=== PATIENT | female | born 1960 | race Caucasian/White ===

== ENCOUNTER 2018-11-26 17:10 | Inpatient (IN) | payer SELFPAY ==
[2018-11-26 18:30] LABS: #Basophils 0.1 thou/uL (0.0-0.2); #Eosinphils 0.2 thou/uL (0.0-0.7); #Lymphocytes 3.6 thou/uL (1.20-3.40); #Monocytes 0.8 thou/uL (0.11-0.59); #Neutrophils 5.2 thou/uL (1.40-6.50); %Basophils 1.1 % (0.0-1.0); %Eosinophils 2.3 % (0.0-10.0); %Lymphocytes 36.2 % (21.0-51.0); %Monocytes 7.7 % (0.0-10.0); %Neutrophils 52.8 % (42.0-75.0); Hemoglobin 13.4 g/dL (12.0-16.0); Mean Corpuscular HGB CONC 33.3 g/dL (32.0-36.0); Mean Corpuscular Hemoglobin 28.2 pg (27.0-31.0); Mean Corpuscular Volume 84.6 fL (78.0-98.0); Mean Platelet Volume 8.8 fL (7.4-10.4); Platelet Count 272 thou/uL (130-400); RBC Distribution Width 13.5 % (11.5-14.5); Red Blood Cell (RBC) Count 4.77 mill/uL (4.20-5.40); White Blood Cell (WBC) Count 9.8 thou/uL (4.8-10.8)
[2018-11-26 18:46] LABS: ALT (SGPT) 17 U/L (8-55); AST (SGOT) 20 U/L (5-34); Albumin 4.7 g/dL (3.5-5.0); Alkaline Phosphatase 108 U/L (40-150); Anion Gap 18 mmol/L (10-20); BUN (Urea Nitrogen) 18 mg/dL (9.8-20.1); Bilirubin, Total 0.3 mg/dL (0.2-1.2); CK (CPK) 275 U/L (29-168); Calc. Creatinine Clearance 0 mL/min (70-130); Calcium 10.3 mg/dL (7.8-10.44); Carbon Dioxide 23 mmol/L (22-29); Chloride 103 mmol/L (98-107); Estimated GFR-MDRD 69; Globulin 3.1 g/dL (2.4-3.5); Glucose 101 mg/dL (70-105); Lipase 40 U/L (8-78); Potassium 3.6 mmol/L (3.5-5.1); Protein, Total 7.8 g/dL (6.0-8.3); Sodium 140 mmol/L (136-145)
[2018-11-26 19:14] LABS: CKMB 9.7 ng/mL (0-6.6)
[2018-11-26] MEDS ORDERED: Morphine 4 MG/ML VIAL ONE (23:07)
[2018-11-26] MEDS ORDERED: Ondansetron PF 4 MG/2 ML Vial ONE ×2 (23:08)
[2018-11-26] MEDS ORDERED: Aspirin 325 MG TAB ONE (23:08)
[2018-11-27 00:16] VITALS: BMI 31.2
[2018-11-27 02:29] LABS: Troponin I 0.024 ng/mL (< 0.028)
[2018-11-27] MEDS ORDERED: Acetaminophen 325 MG TAB PO PRN (03:30)
[2018-11-27] MEDS ORDERED: Acetaminophen 650 MG Suppository PR PRN (03:30)
[2018-11-27] MEDS ORDERED: Ondansetron ODT 4 MG TAB PO PRN (03:30)
[2018-11-27] MEDS ORDERED: Ondansetron PF 4 MG/2 ML Vial IVP PRN (03:30)
[2018-11-27 04:56] LABS: Anion Gap 14 mmol/L (10-20); BUN (Urea Nitrogen) 18 mg/dL (9.8-20.1); Calc. Creatinine Clearance 106 mL/min (70-130); Calcium 9.5 mg/dL (7.8-10.44); Carbon Dioxide 24 mmol/L (22-29); Chloride 107 mmol/L (98-107); Estimated GFR-MDRD 78; Glucose 110 mg/dL (70-105); Potassium 3.7 mmol/L (3.5-5.1); Sodium 141 mmol/L (136-145)
--- NOTE | 2018-11-27 05:02 | HP ---
PRIMARY CARE DOCTOR: The patient goes to [facility]. CODE STATUS: Full code. TIME OF EVALUATION: CHIEF COMPLAINT: Dizziness and positive troponin. HISTORY OF PRESENT ILLNESS: This is a 58-year-old female patient, with past medical history of coronary artery disease with previous [place], hypertension, came to the hospital after having an episode of dizziness with no clear triggers, no alleviating factors. She also has a history of having been signed AMA from [facility] yesterday. Reportedly, the patient has a troponin of 0.6. I do not have records from that, this report was from ER. We have been unable to get the records from [facility]. The patient reportedly have a stress test done a year ago since she had a surgery of the back and neck and she received a workup to rule out any coronary artery disease prior to surgery. We will request those records. The patient is not a good historian. Once we get that information, then we will be able to make a plan for further decisions. For now, we will continue to monitor on tele and monitor troponins. REVIEW OF SYSTEMS: CONSTITUTIONAL: No fever, chills, or generalized weakness. RESPIRATORY: No cough, sputum production, or shortness of breath. CARDIOVASCULAR: The patient has no chest pain. The patient has some palpitation. GASTROINTESTINAL: No nausea. No vomiting, diarrhea, or abdominal pain. DIRECTOR CLIENT: No dizziness, headache, or feeling lightheaded. GENITOURINARY: No burning on urination. EXTREMITIES: No leg swelling. All other systems were reviewed and negative except for the findings mentioned above. PAST MEDICAL HISTORY: Positive for acute [place] and hypertension. PAST SURGICAL HISTORY: Bilateral knee replacement, C3, C7, neck surgery, back surgery PSYCHIATRIC HISTORY: No previous psych history. FAMILY HISTORY: Reviewed and non contributory to current presentation. SOCIAL HISTORY: The patient denies alcohol use. No drug use. No smoking history. KNOWN ALLERGIES: Tramadol. REPORTED MEDICATIONS: 1. Lisinopril. 2. Hydrochlorothiazide. 3. Metoprolol. 4. Citalopram. 5. Meloxicam. PHYSICAL EXAMINATION: VITAL SIGNS: On presentation, blood pressure 115/59 with heart rate 77, respiratory rate was 18, temperature 98.2. Pain was 0/10. Oxygen saturation was 100 on room air. GENERAL APPEARANCE: The patient is alert, oriented, not in acute distress. HEENT: Eyes, normal conjunctivae. Moist oral mucosa. Anicteric. No JVD. RESPIRATORY: Bilateral air entry. No rales. No wheezes. Symmetric expansion. CARDIOVASCULAR: Normal rate. Regular rhythm. No murmurs. No gallop. No edema. ABDOMEN: Soft. Normal bowel sounds. MUSCULOSKELETAL: Baseline range of motion and strength. No tenderness. SKIN: Warm, intact. No pallor. No rash. No redness. Capillary refill seems to be intact. NEUROLOGICAL: No evidence of any new focal weakness. Cranial nerves seems to be intact. PSYCHIATRIC: The patient is in good mood. No anxiety. Optimal judgment. IMAGING STUDIES: EKG was reviewed. The patient has sinus rhythm at the rate of 84 with some PVCs, left ventricular hypertrophy with repolarization abnormalities. Hematology; white count 9.8, hemoglobin 13.4, MCV 84.6, platelet count 272. Chemistry; sodium 140, potassium 3.6, chloride 103, carbon dioxide 23, anion gap 18, BUN 18, creatinine 0.8, GFR 69, glucose 101, calcium 10.3, AST 20, ALT 17. CK 275. Troponin 0.043. The other two troponins were negative. Lipase 40. ASSESSMENT AND PLAN: The patient will be placed in the hospital for following medical problems; 1. chest pain r/o acs Mildly elevated troponin, 2nd troponin was negative. There is a report from [facility] that she had one troponin at 0.6, but we do not have a proof of it. The patient has a history of coronary artery disease, also had a history of having a stress test done in [place], [place], in [facility], so we will request those records to make a plan for her, so we do not have to repeat any unnecessary testing. 2. History of hypertension, this is chronic. Reconcile home medications, we will adjust treatment as needed. 3. Deep venous thrombosis prophylaxis. Job ID: [id number] [facility]
[2018-11-27 05:18] LABS: Eosinophils 2 % (0-10); Hemoglobin 12.3 g/dL (12.0-16.0); Lymphocytes 40 % (21-51); MDiff Complete? YES; Mean Corpuscular HGB CONC 33.3 g/dL (32.0-36.0); Mean Corpuscular Hemoglobin 28.3 pg (27.0-31.0); Mean Platelet Volume 8.5 fL (7.4-10.4); Monocytes 9 % (0-10); Neutrophil 45 % (42-75); Platelet Count 201 thou/uL (130-400); RBC Distribution Width 13.4 % (11.5-14.5); Reactive Lymphocytes 3 % (0-10); Red Blood Cell (RBC) Count 4.34 mill/uL (4.20-5.40); White Blood Cell (WBC) Count 9.3 thou/uL (4.8-10.8)
[2018-11-27] MEDS: Enoxaparin Sodium 40 MG/0.4 ML SYRINGE SC SCH (10:03)
[2018-11-27] MEDS: Citalopram 10 MG TAB PO SCH (10:03)
[2018-11-27] MEDS: Lisinopril/Hydrochlorothiazide 20 mg/12.5 mg Tablet PO SCH (10:03)
[2018-11-27] MEDS ORDERED: ADENOSINE 60 MG/20 ML VIAL ONE (13:10)
--- NOTE | 2018-11-27 14:08 | NM ---
NM Cardiac Stress W EF WF HISTORY: Chest pain COMPARISON: None. FINDINGS: This examination was performed using 31.0 mCi 90 9M6 technetium sestamibi for the stress an d 10.3 mCi for the resting images. This shows a defect in the inferior lateral wall of the left ventricle near the apex it shows some mi nimal improvement near the apex on the stress images which may represent a tiny focus of mukesh-infarct ischemia Wall motion: There is symmetric contractility of the ventricle Left ventricular ejection fraction: The calcaneal left ventricular ejection fraction is 74% IMPRESSION: Area of scar involving the inferior lateral wall of the left ventricle near the apex. On the resting images there does appear to be some minimal improvement with some reperfusion near the apex of the heart.
--- NOTE | 2018-11-27 15:41 | PDOC.PN ---
- Subjective Encounter Start Date: 11/27/18 Subjective: Patient examined, denies new complaints -: We are still waiting for records from [facility] -: Patient reports last stress was 07/2017 - Objective Resuscitation Status - Order Detail: 11/27/18 03:30 Resuscitation Status Routine Resuscitation Status: FULL: Full Resuscitation Vital Signs & Weight: Vital Signs (12 hours) Temp Pulse Resp BP BP Pulse Ox 11/27/18 13:56 97.6 F 58 L 16 118/60 96 11/27/18 10:03 72 11/27/18 07:38 97.6 F 72 14 106/59 L 94 L Weight Weight 85.275 kg I&O: 11/26/18 11/27/18 11/28/18 06:59 06:59 06:59 Intake Total 200 Balance 200 Result Diagrams: 11/27/18 04:24 11/27/18 04:24 Phys Exam - Physical Examination HEENT: PERRLA, moist MMs Neck: no nodes Respiratory: clear to auscultation bilateral Cardiovascular: RRR, no significant murmur Gastrointestinal: soft, non-tender Musculoskeletal: no edema, pulses present Neurological: non-focal, normal sensation Lymphatic: no nodes Psychiatric: normal affect, A&O x 3 Skin: no rash, normal turgor Dx/Plan (1) Chest pain Code(s): R07.9 - CHEST PAIN, UNSPECIFIED Status: Acute (2) CAD (coronary artery disease) Code(s): I25.10 - ATHSCL HEART DISEASE OF [place] CORONARY ARTERY W/O ANG PCTRS Status: Chronic (3) Hypertension Code(s): I10 - ESSENTIAL (PRIMARY) HYPERTENSION Status: Chronic (4) Chronic back pain Code(s): M54.9 - DORSALGIA, UNSPECIFIED; G89.29 - OTHER CHRONIC PAIN Status: Chronic (5) H/O Spinal surgery Code(s): Z98.890 - OTHER SPECIFIED POSTPROCEDURAL STATES Status: Chronic - Plan cont current plan of care Cardiology consulted due to abnormal stress test, would appreciate -: recommendations for treatment options, as needed. -: Awaiting records from [facility] -: Will continue to monitor, repeat labs in AM * .
[2018-11-27] MEDS ORDERED: Communication Order-Pharmacy FS SCH (20:00)
--- NOTE | 2018-11-28 01:19 | CON ---
DATE OF CONSULTATION: HISTORY: Lilliam Nuñez is a 58-year-old white female, admitted with dizziness mainly as well as some chest discomfort. 2-1/2 years ago while living in [place], she apparently had a myocardial infarction. She underwent cardiac catheterization and was told that 1 of her "veins burst" and could not be treated with stenting. She then recently, over the last year, has undergone surgeries in [place], [place] with cervical laminectomy as well as lumbar laminectomy. She stopped taking aspirin before those surgeries and has never resumed. Her last surgery was in July. On November 25, when she awoke, she was having vertiginous symptoms with feeling of the room spinning and she could not stand up. She was nauseated, vomited and did have some chest discomfort with that. She went to the [facility] Emergency Room and they recommended that she be admitted, however, she signed out AMA. She continued to have dizziness and so came to the emergency room here. Her troponin was mildly elevated and she was admitted for further evaluation. She has undergone adenosine Cardiolite testing, which was abnormal. PAST MEDICAL HISTORY: Hypertension. Hypercholesterolemia. She was prescribed a statin, but she decided to never take it. She has never been intolerant of statins because she has never taken one. PAST SURGICAL HISTORY: Bilateral knee replacement, neck surgery, back surgery, hysterectomy, foot surgery, and cataract surgery. MEDICATIONS: Celexa 10 mg daily, lisinopril/hydrochlorothiazide 20/12.5 daily, and metoprolol 25 XL daily. ALLERGIES: TRAMADOL. SOCIAL HISTORY: She does not smoke or drink. FAMILY HISTORY: Father had myocardial infarction. REVIEW OF SYSTEMS: A 12-point review of systems unremarkable except for leg and arm paresthesias since her back and neck surgery. PHYSICAL EXAMINATION: VITAL SIGNS: Blood pressure 121/58 and pulse 58. HEENT: PERRL. NECK: Supple. CHEST: Clear. CARDIAC: S1 and S2 normal without any S3, S4, or murmurs. Carotid upstrokes normal without bruits. ABDOMEN: Normal bowel sounds without tenderness, organomegaly or masses. Abdomen is obese. EXTREMITIES: Revealed no clubbing, cyanosis, or edema. NEUROLOGICAL: Grossly intact. LABORATORY DATA: EKG revealed normal sinus rhythm with PVC and probable previous inferior infarction. Adenosine Cardiolite revealed a scar of the inferolateral wall near the apex. There is some minimal reperfusion near the apex of the heart. CBC is unremarkable. CK-MB 9.7, troponin I 0.043, Sodium 140, potassium 3.6, chloride 103, carbon dioxide 23, BUN 18, and creatinine 0.84. IMPRESSION: 1. Previous myocardial infarction without intervention. 2. Abnormal Cardiolite with finding of inferolateral fixed defect with some evidence of ischemia. She does have evidence of inferior infarction on her EKG and certainly these findings may be from her previous infarction. However, at the present time, there is no way of knowing that. 3. History compatible with acute labyrinthitis. 4. Hypertension. At times, her blood pressure is somewhat low and she does state she has lost 25-30 pounds with all of her surgeries, this will continue to be monitored and some of her medications may need to be reduced. 5. Hypercholesterolemia, she has never tried a statin. 6. Positive family history. 7. Obesity. 8. Multiple spine surgeries within the last year. PLAN: The patient will be started on aspirin. Fasting lipid profile will be obtained and will be started on a statin. I did recommend that she undergo cardiac catheterization. Risks of this were discussed with the patient and her daughter including , myocardial infarction, dye reaction, vascular injury, CVA, transfusion, limb loss, renal loss, etc. Also risk of stent placement discussed including , myocardial infarction, emergent CABG, restenosis, stent thrombosis, vessel perforation, etc. She does state that she has bad hips and may need to have those replaced, but states she does not have any plans to do that within the next several years. She never had gastrointestinal bleeding or stroke and she wishes a drug-eluting stent to be placed if needed. Job ID: [id number] [facility]ITAL[facility]le
[2018-11-28 05:19] LABS: Cardiac Risk 6.2 (Less than 4.5)
[2018-11-28] MEDS: Aspirin 325 mg Enteric Coated Tablet PO SCH (09:29)
[2018-11-28] MEDS: Citalopram 10 MG TAB PO SCH (09:29)
[2018-11-28] MEDS: Enoxaparin Sodium 40 MG/0.4 ML SYRINGE SC SCH (09:30)
[2018-11-28] MEDS: Lisinopril/Hydrochlorothiazide 20 mg/12.5 mg Tablet PO SCH (09:30)
[2018-11-28] MEDS ORDERED: HYDROcodone/Acetaminophen 5/325 mg Tablet PO PRN (10:26)
--- NOTE | 2018-11-28 11:05 | EKG ---
Test Reason : Blood Pressure : / mmHG Vent. Rate : 084 BPM Atrial Rate : 084 BPM P-R Int : 136 ms QRS Dur : 084 ms QT Int : 338 ms P-R-T Axes : -01 -05 179 degrees QTc Int : 399 ms Sinus rhythm with occasional Premature ventricular complexes Left ventricular hypertrophy with repolarization abnormality Inferior infarct , age undetermined Abnormal ECG Confirmed by SILVER OHARA ([id number]), editorial specialist ACOSTA ARRINGTON ([id number]) on 11/28/2018 11:05:34 AM Referred By: Confirmed By:SILVER OHARA
--- NOTE | 2018-11-28 11:05 | EKG ---
Test Reason : Blood Pressure : / mmHG Vent. Rate : 094 BPM Atrial Rate : 094 BPM P-R Int : 142 ms QRS Dur : 084 ms QT Int : 320 ms P-R-T Axes : -04 -05 167 degrees QTc Int : 400 ms Sinus rhythm with occasional Premature ventricular complexes Left ventricular hypertrophy with repolarization abnormality Possible Lateral infarct , age undetermined Inferior infarct , age undetermined Abnormal ECG Confirmed by SILVER OHARA ([id number]), marketing editor ACOSTA ARRINGTON ([id number]) on 11/28/2018 11:05:49 AM Referred By: Confirmed By:SILVER OHARA
[2018-11-28] MEDS: HYDROcodone/Acetaminophen 5/325 mg Tablet PO PRN ×2 (11:21→20:57)
--- NOTE | 2018-11-28 15:23 | PDOC.PN ---
- Subjective Encounter Start Date: 11/28/18 Encounter Start Time: 11:00 -: old records requested/rev Subjective: Patient examined today, reports chronic pain is worse -: without her NSAIDs but Lortab helped with pain -: Answered all questions, Dr. Butler will take for cath on Friday - Objective Resuscitation Status - Order Detail: 11/27/18 03:30 Resuscitation Status Routine Resuscitation Status: FULL: Full Resuscitation Vital Signs & Weight: Vital Signs (12 hours) Temp Pulse Resp BP BP Pulse Ox 11/28/18 11:28 98.1 F 66 12 109/60 95 11/28/18 09:30 58 L 11/28/18 07:40 98.3 F 58 L 12 118/56 L 94 L 11/28/18 03:29 98.7 F 56 L 18 106/59 L 96 Weight Weight 85.275 kg I&O: 11/27/18 11/28/18 11/29/18 06:59 06:59 06:59 Intake Total 200 950 600 Balance 200 950 600 Result Diagrams: 11/27/18 04:24 11/27/18 04:24 Phys Exam - Physical Examination HEENT: PERRLA Respiratory: clear to auscultation bilateral Cardiovascular: RRR Gastrointestinal: soft, non-tender Musculoskeletal: pulses present chronic lumbar pain Neurological: normal sensation Lymphatic: no nodes Psychiatric: normal affect, A&O x 3 Skin: no rash Dx/Plan (1) Chest pain Code(s): R07.9 - CHEST PAIN, UNSPECIFIED Status: Acute (2) CAD (coronary artery disease) Code(s): I25.10 - ATHSCL HEART DISEASE OF [place] CORONARY ARTERY W/O ANG PCTRS Status: Chronic (3) Hypertension Code(s): I10 - ESSENTIAL (PRIMARY) HYPERTENSION Status: Chronic (4) Chronic back pain Code(s): M54.9 - DORSALGIA, UNSPECIFIED; G89.29 - OTHER CHRONIC PAIN Status: Chronic (5) H/O Spinal surgery Code(s): Z98.890 - OTHER SPECIFIED POSTPROCEDURAL STATES Status: Chronic - Plan cont current plan of care Dr. Butler will cath on Friday, PT/OT evaluation -: Reports chest pain is better -: Pain meds for her back pain, -: Will continue to monitor, check labs in AM * . Review of Systems - Review of Systems Musculoskeletal: Back Pain (Improved after Lortab) - Medications/Allergies Allergies/Adverse Reactions: Allergies Allergy/AdvReac Type Severity Reaction Status Date / Time tramadol Allergy Verified 11/27/18 00:30 Medications: Current Medications Acetaminophen (Tylenol) 650 mg PO Q4H PRN PRN Reason: Headache/Fever/Mild Pain (1-3) Last Admin: 11/27/18 19:11 Dose: 650 mg Acetaminophen (Tylenol) 650 mg [place] Q4H PRN PRN Reason: Headache/Fever/Mild Pain (1-3) Hydrocodone Bitart/Acetaminophen ([place] 5/325) 1 tab PO Q4H PRN PRN Reason: Moderate Pain (4-6) Hydrocodone Bitart/Acetaminophen ([place] 5/325) 2 tab PO Q4H PRN PRN Reason: Severe Pain (7-10) Last Admin: 11/28/18 11:21 Dose: 2 tab Aspirin (Ecotrin) 325 mg PO DAILY [facility] Last Admin: 11/28/18 09:29 Dose: 325 mg Citalopram Hydrobromide (Celexa) 10 mg PO DAILY [facility] Last Admin: 11/28/18 09:29 Dose: 10 mg Coenzyme Q10 (Coenzyme Q10) 200 mg PO HS [facility] Enoxaparin Sodium (Lovenox) 40 mg SC 0900 [facility] Stop: 11/29/18 23:59 Last Admin: 11/28/18 09:30 Dose: 40 mg Sodium Chloride (Normal Saline 0.9%) 1,000 mls @ 100 mls/hr IV .Q10H [facility] Lisinopril (Zestril) 20 mg PO DAILY [facility] Metoprolol Succinate (Toprol Xl) 25 mg PO DAILY [facility] Last Admin: 11/28/18 09:30 Dose: 25 mg Miscellaneous Information (Communication Order-Pharmacy) 0 each FS ONE [facility] Stop: 11/29/18 23:59 Ondansetron HCl (Zofran Odt) 4 mg PO Q6H PRN PRN Reason: Nausea/Vomiting Last Admin: 11/27/18 14:22 Dose: 4 mg Ondansetron HCl (Zofran) 4 mg IVP Q6H PRN PRN Reason: Nausea/Vomiting Rosuvastatin Calcium (Crestor) 20 mg PO HS [facility]
[2018-11-28] MEDS: Senokot S 8.6-50 MG TAB PO SCH (18:21)
[2018-11-28] MEDS: Rosuvastatin 20 MG TAB PO SCH (20:56)
[2018-11-28] MEDS: Ubidecarenone 50 MG CAP PO SCH (20:56)
[2018-11-29] MEDS: Aspirin 325 mg Enteric Coated Tablet PO SCH (09:01)
[2018-11-29] MEDS: Polyethylene Glycol 3350 17 GM Packet PO SCH (09:01)
[2018-11-29] MEDS: Citalopram 10 MG TAB PO SCH (09:01)
[2018-11-29] MEDS: Lisinopril 20 MG TAB PO SCH (09:01)
[2018-11-29] MEDS: Enoxaparin Sodium 40 MG/0.4 ML SYRINGE SC SCH (09:01)
[2018-11-29] MEDS: Senokot S 8.6-50 MG TAB PO SCH ×2 (09:02→21:55)
[2018-11-29] MEDS: HYDROcodone/Acetaminophen 5/325 mg Tablet PO PRN (09:02)
--- NOTE | 2018-11-29 13:38 | PDOC.PN ---
- Subjective Encounter Start Date: 11/29/18 Encounter Start Time: 10:45 Subjective: Patient examined, resting with no new complaints -: Reports exacerbation of chronic back pain from lying on the hospital bed -: PT to work with her today - Objective Resuscitation Status - Order Detail: 11/27/18 03:30 Resuscitation Status Routine Resuscitation Status: FULL: Full Resuscitation Vital Signs & Weight: Vital Signs (12 hours) Temp Pulse Resp BP BP Pulse Ox 11/29/18 11:50 97.4 F L 62 16 115/59 L 115/59 L 95 11/29/18 08:30 98.2 F 61 12 130/69 95 11/29/18 04:57 97.5 F L 53 L 14 131/61 92 L Weight Weight 85.003 kg I&O: 11/28/18 11/29/18 11/30/18 06:59 06:59 06:59 Intake Total 950 1160 240 Output Total 150 Balance 950 1010 240 Result Diagrams: 11/27/18 04:24 11/27/18 04:24 Phys Exam - Physical Examination HEENT: PERRLA, moist MMs Neck: no nodes, no JVD Respiratory: clear to auscultation bilateral Cardiovascular: RRR, no significant murmur Gastrointestinal: soft, non-tender Musculoskeletal: no edema, pulses present Neurological: non-focal, normal sensation Lymphatic: no nodes Psychiatric: normal affect, A&O x 3 Skin: cap refill <2 seconds Dx/Plan (1) Chest pain Code(s): R07.9 - CHEST PAIN, UNSPECIFIED Status: Acute (2) CAD (coronary artery disease) Code(s): I25.10 - ATHSCL HEART DISEASE OF [place] CORONARY ARTERY W/O ANG PCTRS Status: Chronic (3) Hypertension Code(s): I10 - ESSENTIAL (PRIMARY) HYPERTENSION Status: Chronic (4) Chronic back pain Code(s): M54.9 - DORSALGIA, UNSPECIFIED; G89.29 - OTHER CHRONIC PAIN Status: Chronic (5) H/O Spinal surgery Code(s): Z98.890 - OTHER SPECIFIED POSTPROCEDURAL STATES Status: Chronic - Plan Will have cardiac cath in AM -: PT/OT evaluation -: May need PT at home upon DC -: Will continue to monitor labs/VS * . Review of Systems - Review of Systems Musculoskeletal: Back Pain (exacerbation of chronic pain from hospital bed) - Medications/Allergies Allergies/Adverse Reactions: Allergies Allergy/AdvReac Type Severity Reaction Status Date / Time tramadol Allergy Verified 11/27/18 00:30 Medications: Current Medications Acetaminophen (Tylenol) 650 mg PO Q4H PRN PRN Reason: Headache/Fever/Mild Pain (1-3) Last Admin: 11/27/18 19:11 Dose: 650 mg Acetaminophen (Tylenol) 650 mg [place] Q4H PRN PRN Reason: Headache/Fever/Mild Pain (1-3) Hydrocodone Bitart/Acetaminophen ([place] 5/325) 1 tab PO Q4H PRN PRN Reason: Moderate Pain (4-6) Hydrocodone Bitart/Acetaminophen ([place] 5/325) 2 tab PO Q4H PRN PRN Reason: Severe Pain (7-10) Last Admin: 11/29/18 09:02 Dose: 2 tab Aspirin (Ecotrin) 325 mg PO DAILY [facility] Last Admin: 11/29/18 09:01 Dose: 325 mg Citalopram Hydrobromide (Celexa) 10 mg PO DAILY [facility] Last Admin: 11/29/18 09:01 Dose: 10 mg Coenzyme Q10 (Coenzyme Q10) 200 mg PO HS [facility] Last Admin: 11/28/18 20:56 Dose: 200 mg Enoxaparin Sodium (Lovenox) 40 mg SC 0900 [facility] Stop: 11/29/18 23:59 Last Admin: 11/29/18 09:01 Dose: 40 mg Sodium Chloride (Normal Saline 0.9%) 1,000 mls @ 100 mls/hr IV .Q10H [facility] Lisinopril (Zestril) 20 mg PO DAILY [facility] Last Admin: 11/29/18 09:01 Dose: 20 mg Metoprolol Succinate (Toprol Xl) 25 mg PO DAILY [facility] Last Admin: 11/29/18 09:01 Dose: 25 mg Miscellaneous Information (Communication Order-Pharmacy) 0 each FS ONE [facility] Stop: 11/29/18 23:59 Ondansetron HCl (Zofran Odt) 4 mg PO Q6H PRN PRN Reason: Nausea/Vomiting Last Admin: 11/27/18 14:22 Dose: 4 mg Ondansetron HCl (Zofran) 4 mg IVP Q6H PRN PRN Reason: Nausea/Vomiting Polyethylene Glycol (Miralax) 17 gm PO DAILY [facility] Last Admin: 11/29/18 09:01 Dose: 17 gm Rosuvastatin Calcium (Crestor) 20 mg PO [facility] Last Admin: 11/28/18 20:56 Dose: 20 mg Senna/Docusate Sodium (Senokot S) 1 tab PO BID [facility] Last Admin: 11/29/18 09:02 Dose: 1 tab
[2018-11-29] MEDS: Ubidecarenone 50 MG CAP PO SCH (21:54)
[2018-11-29] MEDS: Rosuvastatin 20 MG TAB PO SCH (21:54)
[2018-11-30] MEDS ORDERED: Sodium Chloride 0.9% 1,000 ML IV SCH ×2 (06:00→11:03)
[2018-11-30] MEDS: Lisinopril 20 MG TAB PO SCH (06:05)
[2018-11-30] MEDS: Aspirin 325 mg Enteric Coated Tablet PO SCH (06:05)
[2018-11-30] MEDS: Citalopram 10 MG TAB PO SCH (06:06)
[2018-11-30] MEDS ORDERED: Heparin 10,000 UNITS/1 ML VIAL ONE (09:33)
[2018-11-30] MEDS ORDERED: Midazolam HCl 2 mg/2 ml Vial ONE (10:13)
[2018-11-30] MEDS ORDERED: Fentanyl 100 MCG/2 ML VIAL ONE (10:13)
[2018-11-30] MEDS: Senokot S 8.6-50 MG TAB PO SCH (10:16)
[2018-11-30] MEDS: Polyethylene Glycol 3350 17 GM Packet PO SCH (10:16)
[2018-11-30] MEDS ORDERED: Protamine Sulfate 50 MG/5 ML VIAL ONE (10:43)
[2018-11-30] MEDS ORDERED: Nitroglycerin 0.4 MG TAB (25 Tab Bottle) SL PRN (11:01)
[2018-11-30] MEDS ORDERED: Sodium Chloride 0.9% 200 ML IV PRN (11:01)
[2018-11-30] MEDS ORDERED: Iopamidol 370 76% 50 ML VIAL FS ONE (11:13)
[2018-11-30] MEDS ORDERED: Iopamidol 370 76% 100 ML VIAL ONE (11:13)
[2018-11-30] MEDS: HYDROcodone/Acetaminophen 5/325 mg Tablet PO PRN (11:53)
[2018-11-30 15:41] VITALS: BP 154/66; TEMP 98
--- NOTE | 2018-11-30 21:24 | DIS ---
DATE OF ADMISSION: 11/26/2018 DATE OF DISCHARGE: 11/30/2018 PRIMARY CARE PHYSICIAN: [facility]. DISCHARGE DISPOSITION: Home. PRIMARY DISCHARGE DIAGNOSIS: Chest pain due to stable coronary artery disease. SECONDARY DISCHARGE DIAGNOSES: Hypertension, history of spinal surgery, chronic low back pain, coronary artery disease, dyslipidemia, obesity with BMI 31. PRIMARY PROCEDURE/OPERATION: Cardiac catheterization was performed by Dr. Butler and found with normal coronaries without any significant new problem. RADIOLOGICAL INVESTIGATION: Stress test was done, which showed area of scar involving inferolateral wall of the lateral ventricle near the apex. SIGNIFICANT LABORATORY DATA: WBC 9.3, hemoglobin 12.3, platelet 201. Sodium 141, potassium 3.7, creatinine 0.76, LDL 114. Troponin 0.043. DISCHARGE MEDICATIONS: 1. Aspirin 325 mg p.o. daily. 2. Lisinopril 20 mg p.o. daily. 3. MiraLAX 17 g p.o. daily. 4. Crestor 20 mg p.o. at bedtime. 5. Coenzyme Q10 200 mg p.o. daily. 6. Toprol-XL 25 mg p.o. daily. 7. Celexa 10 mg p.o. daily. CONTRAINDICATION: None. CODE STATUS: Full code. INPATIENT CYTOTECHNOLOGIST: Dr. Butler was consulted while in hospital. TEST RESULTS PENDING ON DISCHARGE: None. ALLERGIES: TRAMADOL. DISCHARGE PLAN: Posthospital, the patient will follow up with primary care physician and Dr. Butler as instructed. HOSPITAL COURSE: A 58-year-old female with above-mentioned medical problem, who was admitted by Dr. Lomax. Please see his H and P for further details. On admission, the patient was having dizziness. She had positive troponin. She has underlying history of coronary artery disease. The patient underwent stress test which did not show any significant reversible ischemia, but Cardiology recommended cardiac catheterization, which was done by Dr. Butler, which did not show any significant coronary problem. The patient was treated medically with aspirin and statin therapy. During this admission, Prinzide changed to only lisinopril. Rest of medication was continued. We added Crestor, aspirin, coenzyme Q10. The patient was asymptomatic while in hospital after cardiac catheterization, Cardiology cleared her for discharge. The patient is seen and examined at bedside today. PHYSICAL EXAMINATION: VITAL SIGNS: Currently, temperature 98.0, pulse 56, respiratory rate 20, saturation 96% on room air, blood pressure 154/66. GENERAL: The patient is currently alert, awake, in no obvious acute distress. HEENT: Head is normocephalic, atraumatic. Eyes; pupils round, reactive to light. Extraocular muscles intact. ENT; oropharynx within normal limits. Moist mucous membranes. No oral lesion. No pharyngeal erythema. No exudate. NECK: Supple. No JVD. No thyromegaly. No carotid bruit. No jugular venous distention. LUNGS: Clear to auscultation without any rhonchi or rales. CARDIAC: S1 and S2, regular without any murmur. ABDOMEN: Soft and benign without any tenderness. EXTREMITIES: No edema. NEUROLOGICAL: Nonfocal examination. Overall, the patient is medically stable for discharge today. Job ID: [id number]
[2018-12-01] MEDS ORDERED: Aspirin 81 mg Enteric Coated Tablet PO SCH (09:00)
== END 2018-11-30 18:03 | disposition home or self-care (01) | DRG 287 ==
LOC: ERS 17:10 → OBSVTOIN 22:37 → 2SW 22:37
PROVIDERS: ADMIT Hospitalist; ATTEND Hospitalist
PROC: 4A023N7 Measurement of Cardiac Sampling and Pressure, Left Heart, Percutaneous Approach (ICD-10-PCS; principal; 2018-11-30)
PROC: B2151ZZ Fluoroscopy of Left Heart using Low Osmolar Contrast (ICD-10-PCS; 2018-11-30)
PROC: B2111ZZ Fluoroscopy of Multiple Coronary Arteries using Low Osmolar Contrast (ICD-10-PCS; 2018-11-30)
DX: I25.10 Atherosclerotic heart disease of native coronary artery without angina pectoris (principal); I10 Essential (primary) hypertension; G89.29 Other chronic pain; E78.00 Pure hypercholesterolemia, unspecified; E78.5 Hyperlipidemia, unspecified; E66.9 Obesity, unspecified; Z96.653 Presence of artificial knee joint, bilateral; Z68.31 Body mass index [BMI] 31.0-31.9, adult; Z88.8 Allergy status to other drugs, medicaments and biological substances; Z98.890 Other specified postprocedural states; I25.2 Old myocardial infarction; Z98.49 Cataract extraction status, unspecified eye; Z90.710 Acquired absence of both cervix and uterus
CPT/HCPCS: 36415; 78452; 80048; 80053; 80061; 82550; 82553; 83690; 84484; 85025; 85347; 90471; 90732; 93005; 93017; 93458; 93798; 96374; 96375; 99152; 99153; A9500; C1769; G0009; J0153; J1644; J1650; J2250; J2270; J2405; J2720; J3010; Q0162; Q9967